=== PATIENT | male | born 1935 | race Native Hawaiian/Other Pacific Islander ===

== ENCOUNTER 2018-12-04 07:05 | Emergency (ER) | payer MEDICARE, BC ==
[~2018-12-04] VITALS: Ht 172.7 cm; Wt 72.6 kg
[~2018-12-04 07:05] MED LIST: AMLO5TAB9 PO; AMLODIPINE; ATOR20TA PO; LEVO88TA2 PO; LIPITOR
[2018-12-04] MEDS ORDERED: ASPIRIN (07:16)
[2018-12-04] MEDS ORDERED: ACETAMINOPHEN ES 500 MG TABLET PO ONE (07:30)
[2018-12-04] MEDS ORDERED: LET TOPICAL SOLUTION 8 ML UDC TP ONE (07:30)
[2018-12-04] MEDS ORDERED: TDAP DIPH,PERTUSS,TET VAC/PF 0.5 ML DISP.SYRIN IM ONE ×2 (07:45→08:07)
[2018-12-04 07:54] LABS: BASOPHILS % (AUTO) 0.6 % (0.0-2.0); EOSINOPHILS # (AUTO) 0.2 K/uL (0.0-0.7); EOSINOPHILS % (AUTO) 3.3 % (0.0-7.0); HEMATOCRIT 41.2 % (36.7-47.1); HEMOGLOBIN 14.1 g/dL (12.5-16.3); LYMPHOCYTES # (AUTO) 1.9 K/uL (20.0-40.0); LYMPHOCYTES % (AUTO) 36.2 % (20.5-51.5); MEAN CORPUSCULAR HEMOGLOBIN 30.1 uug (23.8-33.4); MEAN CORPUSCULAR HGB CONC 34 g/dL (32.5-36.3); MEAN CORPUSCULAR VOLUME 88.1 fL (73.0-96.2); MONOCYTES # (AUTO) 0.4 K/uL (2.0-10.0); MONOCYTES % (AUTO) 6.8 % (0.0-11.0); NEUTROPHILS # (AUTO) 2.8 K/uL (1.8-8.9); NEUTROPHILS % (AUTO) 53.1 % (38.5-71.5); PLATELET COUNT (AUTO) 145 K/uL (152-348); RED BLOOD CELL COUNT(AUTO) 4.67 MIL/uL (4.06-5.63); WHITE BLOOD COUNT (AUTO) 5.4 K/uL (3.6-10.2)
[2018-12-04 08:04] LABS: CREATININE 0.9 mg/dL (0.6-1.3); POTASSIUM 3.9 mmol/L (3.5-5.1)
[2018-12-04] MEDS ORDERED: LET TOPICAL SOLUTION 8 ML UDC ONE (08:07)
[2018-12-04] MEDS ORDERED: ACETAMINOPHEN ES 500 MG TABLET ONE (08:08)
[2018-12-04 08:09] LABS: BILIRUBIN,DIRECT 0.1 mg/dL (0.0-0.2); BILIRUBIN,TOTAL 0.5 mg/dL (0.2-1.0); TOTAL PROTEIN, SERUM 7.5 g/dL (6.4-8.2)
--- NOTE | 2018-12-04 09:24 | NUR ---
CALLED DR. BELLO FOR CONSULT. LEFT A MESSAGE WITH THE SERVICE
--- NOTE | 2018-12-04 09:32 | NUR ---
DR. BROOKE TALKING TO DR. JOSEPH OVER THE PHONE
--- NOTE | 2018-12-04 09:37 | NUR ---
CALLED DR. MILLARD AND LEFT A MESSAGE WITH SERVICE.
--- NOTE | 2018-12-04 09:49 | NUR ---
CALLED DR. MACIEL FOR CONSULT. NOT AVAILABLE TODAY PER OFFICE.
--- NOTE | 2018-12-04 09:52 | NUR ---
CALLED DR. BONILLA OFFICE AND LEFT A MESSAGE FOR THE SERVICE.
--- NOTE | 2018-12-04 09:54 | NUR ---
DR. JOSEPH TALKING TO DR. BRADEN FOR CONSULT.
--- NOTE | 2018-12-04 10:33 | NUR ---
PT WAS D/C'd TO HOME . D/C INSTRUCTIONS GIVEN TO THE PT BY DR JOSEPH. PT IS GOING TO GO TO PLASTIC SURGION OFFICE FOR FURTHER MEDICAL TREATMENT.
[2018-12-04 10:36] VITALS: BP 149/79
== END 2018-12-04 10:38 | disposition home or self-care (01) ==
LOC: ER 07:05
DX: S02.2XXA Fracture of nasal bones, initial encounter for closed fracture (principal); S01.21XA Laceration without foreign body of nose, initial encounter; I10 Essential (primary) hypertension; E78.00 Pure hypercholesterolemia, unspecified; Z79.82 Long term (current) use of aspirin; Z79.899 Other long term (current) drug therapy
CPT/HCPCS: 36415; 70030-TC; 70450; 70486; 71045; 72125; 85025; 85730; 90715; 93005; A4217; A4663; A9150